=== PATIENT | male | born 1960 | race Caucasian/White ===

== ENCOUNTER 2018-01-13 21:41 | Inpatient (IN) ==
[2018-01-13] MEDS ORDERED: SODIUM CHLORIDE 0.9% 1,000 ML IV STA (21:59)
[2018-01-13 22:54] LABS: Basophils % 0.2 % (0.0-0.8); Hemoglobin 12.2 GM/DL (14.0-18.0); Immature Granulocytes % 1.1 %; Immature Granulocytes Absolute 0.09 #; Lymphocytes # 0.5 10*3/uL (1.4-4.0); Lymphocytes % 5.6 % (21.2-54.2); Mean Corpuscular HGB Conc 32.1 GM/DL (32-36); Mean Corpuscular Hemoglobin 24 PG (27-34); Mean Corpuscular Volume 74.4 FL (87-102); Mean Platelet Volume 9.5 FL (9.6-12.0); Monocytes # 0.7 10*3/uL (0.11-0.8); Monocytes % 8.3 % (1.7-12.7); Neutrophils # 6.8 10*3/uL (1.4-7.4); Neutrophils % 84.8 % (38.7-73.9); Platelet Count 111 T/CUMM (130-400); Red Blood Count 5.11 MC/CUMM (3.8-5.5); Red Cell Distribution Width 16.2 % (9.3-17.3); White Blood Count 8.1 T/CUMM (4-12)
[2018-01-13 23:22] LABS: Albumin 3.5 G/DL (3.4-5.0); Bilirubin,Total 1.2 MG/DL (0.2-1.0); Calcium 8.5 MG/DL (8.5-10.1); Osmolality,Calculated 275.7 MOS/KG (273-304); Potassium 3.8 MMOL/L (3.5-5.1); Total Protein 6.8 G/DL (6.4-8.3)
[2018-01-13 23:39] LABS: Apearance,Urine CLEAR (Clear); Bilirubin,Urine Negative (Negative); Blood, Urine Negative (Negative); Glucose,Urine (UA) >=500 mg/dL (Negative); Ketones,Urine 80 mg/dL (Negative); Nitrite,Urine Negative (Negative); Protein,Urine Negative; RBC,Urine 1 /HPF (0-4); Squamous Epithelial Cell,Urine Occasional /HPF (0-10); Urine Color Yellow (Yellow); Urine Specific Gravity 1.031 (1.001-1.035); Urine Urobilinogen < 2.0 EU/DL (0.2-1.0); WBC,Urine <1 /HPF (0-6)
[2018-01-14] MEDS ORDERED: cefTRIAXone 1,000 MG in SODIUM CHLORIDE 0.9% 100 ML IV STA (00:35)
[2018-01-14] MEDS ORDERED: cefTRIAXone 1,000 MG VIAL ONE (00:41)
[2018-01-14] MEDS ORDERED: ONDANSETRON 4 MG/2 ML VIAL IV PRN (01:03)
[2018-01-14] MEDS ORDERED: GLUCAGON 1 MG VIAL IM PRN (01:03)
[2018-01-14] MEDS ORDERED: DEXTROSE 50% 25 GM/50 ML VIAL IV PRN (01:03)
[2018-01-14] MEDS ORDERED: ACETAMINOPHEN 325 MG TABLET PO PRN (01:03)
[2018-01-14 06:28] LABS: Basophils % 0.5 % (0.0-0.8); Hemoglobin 11.4 GM/DL (14.0-18.0); Immature Granulocytes % 1.2 %; Immature Granulocytes Absolute 0.08 #; Lymphocytes # 0.8 10*3/uL (1.4-4.0); Lymphocytes % 12.2 % (21.2-54.2); Mean Corpuscular HGB Conc 31.7 GM/DL (32-36); Mean Corpuscular Hemoglobin 24 PG (27-34); Mean Corpuscular Volume 74.7 FL (87-102); Mean Platelet Volume 9.6 FL (9.6-12.0); Monocytes # 0.6 10*3/uL (0.11-0.8); Monocytes % 9.4 % (1.7-12.7); Neutrophils % 76.7 % (38.7-73.9); Platelet Count 101 T/CUMM (130-400); Red Blood Count 4.82 MC/CUMM (3.8-5.5); Red Cell Distribution Width 16.3 % (9.3-17.3); White Blood Count 6.5 T/CUMM (4-12)
[2018-01-14 06:53] LABS: Calcium 8.1 MG/DL (8.5-10.1); Osmolality,Calculated 273.8 MOS/KG (273-304); Potassium 3.5 MMOL/L (3.5-5.1)
[2018-01-14] MEDS: INSULIN REGULAR 100 UNIT/ML SUBCUT SCH ×4 (08:45→21:10)
[2018-01-14] MEDS ORDERED: OSTEO BIFLEX PO SCH (09:00)
[2018-01-14] MEDS ORDERED: VICTOZA 1.8 MG SUBCUT SCH (09:00)
[2018-01-14] MEDS ORDERED: NON-FORMULARY MEDICATION (Canagliflozin [Invokana] 300 MG) PO SCH (09:00)
[2018-01-14] MEDS ORDERED: Cranberry [Cranberry] 400 MG PO SCH (09:00)
[2018-01-14] MEDS ORDERED: risperiDONE 1 MG TABLET PO SCH (09:00)
[2018-01-14] MEDS ORDERED: PANTOPRAZOLE 40 MG TABLET PO SCH (09:00)
[2018-01-14] MEDS ORDERED: ENOXAPARIN 40 MG/0.4 ML SYRINGE SUBCUT SCH (09:00)
[2018-01-14] MEDS: metFORMIN 500 MG TABLET PO SCH ×2 (10:56→21:09)
[2018-01-14] MEDS: DILTIAZEM CD 240 MG CAPSULE PO SCH ×2 (10:56→21:09)
[2018-01-14] MEDS: buPROPion XL 150 MG TABLET PO SCH (10:56)
[2018-01-14] MEDS: CALCIUM (CARBONATE) 600 MG TABLET PO SCH (10:57)
[2018-01-14] MEDS: sitaGLIPtin 100 MG TABLET PO SCH (10:57)
[2018-01-14] MEDS: APIXABAN 5 MG TABLET PO SCH ×2 (10:57→21:10)
[2018-01-14] MEDS: DIGOXIN 0.125 MG TABLET PO SCH (10:57)
[2018-01-14] MEDS: PANTOPRAZOLE 40 MG TABLET PO SCH (10:57)
[2018-01-14] MEDS: METOPROLOL TARTRATE 100 MG TABLET PO SCH ×2 (10:58→21:09)
[2018-01-14] MEDS: OXYBUTYNIN XL 5 MG TABLET PO SCH (10:58)
[2018-01-14] MEDS: DOCUSATE SODIUM 100 MG CAPSULE PO SCH ×2 (10:59→21:08)
[2018-01-14] MEDS: DIVALPROEX 500 MG TABLET PO SCH ×2 (10:59→21:08)
[2018-01-14] MEDS: cefTRIAXone 1,000 MG VIAL IM SCH (11:00)
[2018-01-14] MEDS: MAGNESIUM CHLORIDE 64 MG TABLET PO SCH ×2 (11:53→21:08)
[2018-01-14] MEDS: COENZYME Q10 100 MG CAPSULE PO SCH (12:09)
[2018-01-14 13:38] LABS: ABG HCO3 26.1 MMOL/L (20-26); ABG Oxygen Saturation 90.8 % (95-100); ABG PH 7.469 (7.35-7.45); ABG PO2 59.1 MM HG (80-95); ABG TCO2 22.6 MMOL/L (23-27)
[2018-01-14] MEDS ORDERED: FUROSEMIDE 40 MG TABLET PO ONE (14:53)
[2018-01-14] MEDS: POTASSIUM CHLORIDE 20 MEQ TABLET PO SCH (16:06)
[2018-01-14] MEDS: cloNIDine 0.1 MG TABLET PO SCH (21:09)
[2018-01-14] MEDS: CARBIDOPA/LEVODOPA 25-100 MG TABLET PO SCH (21:10)
[2018-01-15 07:11] LABS: Albumin 3.1 G/DL (3.4-5.0); Bilirubin,Total 0.8 MG/DL (0.2-1.0); Calcium 8.5 MG/DL (8.5-10.1); Osmolality,Calculated 278.7 MOS/KG (273-304); Potassium 3.4 MMOL/L (3.5-5.1); Total Protein 6.7 G/DL (6.4-8.3)
[2018-01-15] MEDS: INSULIN REGULAR 100 UNIT/ML SUBCUT SCH ×4 (07:57→21:12)
[2018-01-15] MEDS ORDERED: POLYETHYLENE GLYCOL POWDER 17 GM PACK PO PRN (09:11)
[2018-01-15] MEDS: cefTRIAXone 1,000 MG VIAL IM SCH (10:42)
[2018-01-15] MEDS: buPROPion XL 150 MG TABLET PO SCH (10:43)
[2018-01-15] MEDS: COENZYME Q10 100 MG CAPSULE PO SCH (10:43)
[2018-01-15] MEDS: sitaGLIPtin 100 MG TABLET PO SCH (10:43)
[2018-01-15] MEDS: OXYBUTYNIN XL 5 MG TABLET PO SCH (10:44)
[2018-01-15] MEDS: CARBIDOPA/LEVODOPA 25-100 MG TABLET PO SCH ×3 (10:44→21:12)
[2018-01-15] MEDS: DIGOXIN 0.125 MG TABLET PO SCH (10:44)
[2018-01-15] MEDS: DIVALPROEX 500 MG TABLET PO SCH ×2 (10:46→21:10)
[2018-01-15] MEDS: DILTIAZEM CD 240 MG CAPSULE PO SCH ×2 (10:46→21:10)
[2018-01-15] MEDS: CALCIUM (CARBONATE) 600 MG TABLET PO SCH (10:46)
[2018-01-15] MEDS: POTASSIUM CHLORIDE 20 MEQ TABLET PO SCH ×2 (10:46→16:33)
[2018-01-15] MEDS: METOPROLOL TARTRATE 100 MG TABLET PO SCH ×2 (10:47→21:11)
[2018-01-15] MEDS: APIXABAN 5 MG TABLET PO SCH ×2 (10:47→21:12)
[2018-01-15] MEDS: PANTOPRAZOLE 40 MG TABLET PO SCH (10:47)
[2018-01-15] MEDS: metFORMIN 500 MG TABLET PO SCH ×2 (10:47→21:11)
[2018-01-15] MEDS: MAGNESIUM CHLORIDE 64 MG TABLET PO SCH ×2 (10:47→21:10)
[2018-01-15] MEDS: risperiDONE 0.5 MG TABLET PO SCH (10:54)
[2018-01-15] MEDS: DOCUSATE SODIUM 100 MG CAPSULE PO SCH ×2 (10:54→21:10)
[2018-01-15] MEDS ORDERED: SKIN HEALING OINT (AQUAPHOR) 50 GM TUBE TOP PRN (11:07)
[2018-01-15] MEDS: POLYCARBOPHIL 625 MG TABLET PO SCH ×2 (16:33→21:11)
[2018-01-15] MEDS: cloNIDine 0.1 MG TABLET PO SCH (21:11)
[2018-01-16] MEDS: INSULIN REGULAR 100 UNIT/ML SUBCUT SCH ×3 (09:40→15:55)
[2018-01-16] MEDS: metFORMIN 500 MG TABLET PO SCH (10:01)
[2018-01-16] MEDS: cefTRIAXone 1,000 MG VIAL IM SCH ×2 (10:01→10:30)
[2018-01-16] MEDS: sitaGLIPtin 100 MG TABLET PO SCH (10:01)
[2018-01-16] MEDS: OXYBUTYNIN XL 5 MG TABLET PO SCH (10:02)
[2018-01-16] MEDS: DIVALPROEX 500 MG TABLET PO SCH (10:02)
[2018-01-16] MEDS: DILTIAZEM CD 240 MG CAPSULE PO SCH (10:02)
[2018-01-16] MEDS: CALCIUM (CARBONATE) 600 MG TABLET PO SCH (10:02)
[2018-01-16] MEDS: DIGOXIN 0.125 MG TABLET PO SCH (10:02)
[2018-01-16] MEDS: METOPROLOL TARTRATE 100 MG TABLET PO SCH (10:02)
[2018-01-16] MEDS: CARBIDOPA/LEVODOPA 25-100 MG TABLET PO SCH ×2 (10:02→14:57)
[2018-01-16] MEDS: risperiDONE 0.5 MG TABLET PO SCH (10:03)
[2018-01-16] MEDS: PANTOPRAZOLE 40 MG TABLET PO SCH (10:03)
[2018-01-16] MEDS: APIXABAN 5 MG TABLET PO SCH (10:03)
[2018-01-16] MEDS: POLYCARBOPHIL 625 MG TABLET PO SCH ×2 (10:03→14:56)
[2018-01-16] MEDS: buPROPion XL 150 MG TABLET PO SCH (10:03)
[2018-01-16] MEDS: POTASSIUM CHLORIDE 20 MEQ TABLET PO SCH (10:04)
[2018-01-16] MEDS: COENZYME Q10 100 MG CAPSULE PO SCH (10:04)
[2018-01-16] MEDS: MAGNESIUM CHLORIDE 64 MG TABLET PO SCH (10:04)
[2018-01-16] MEDS: DOCUSATE SODIUM 100 MG CAPSULE PO SCH (10:05)
[2018-01-16] MEDS ORDERED: SULFAMETHOX/TRIMETHOPRIM 800-160 MG TABLET PO SCH (11:30)
[2018-01-16 16:10] VITALS: BP 101/82
== END 2018-01-16 16:02 | DRG 57 ==
LOC: EDUNIT# → EDBD → N.ED 21:41 → N.EDINP 01-14 01:03 → N.5E 01-14 02:25
PROVIDERS: ADMIT Internal Medicine; ATTEND Internal Medicine

== ENCOUNTER 2021-02-11 17:43 | Inpatient (IN) ==
[2021-02-11] MEDS ORDERED: SODIUM CHLORIDE 0.9% 1,000 ML IV STA ×2 (18:16→19:56)
[2021-02-11 18:57] LABS: Basophils % 0.3 % (0.0-0.8); Eosinophils % 0.1 % (0.00-10.9); Hematocrit 45.4 VOL% (42.0-52.0); Immature Granulocytes % 0.9 %; Lymphocytes # 0.3 10*3/uL (1.4-4.0); Lymphocytes % 2.9 % (21.2-54.2); Mean Corpuscular HGB Conc 30.8 GM/DL (32-36); Mean Corpuscular Volume 83.6 FL (87-102); Mean Platelet Volume 9.6 FL (9.6-12.0); Monocytes % 9.9 % (1.7-12.7); Neutrophils % 85.9 % (38.7-73.9); Platelet Count 129 T/CUMM (130-400); Red Blood Count 5.43 MC/CUMM (3.8-5.5); Red Cell Distribution Width 17.4 % (9.3-17.3); White Blood Count 10.7 T/CUMM (4-12)
[2021-02-11 19:37] LABS: Albumin 3.7 G/DL (3.4-5.0); Bilirubin,Total 0.7 MG/DL (0.2-1.0); Calcium 9.1 MG/DL (8.5-10.1); Potassium 4.5 MMOL/L (3.5-5.1); Total Protein 7.7 G/DL (6.4-8.2)
[2021-02-11] MEDS ORDERED: PIPERACILLIN/TAZOBACTAM 3,375 MG in SODIUM CHLORIDE 0.9% 100 ML IV STA (19:53)
[2021-02-11] MEDS ORDERED: VANCOMYCIN INJ 1,000 MG in SODIUM CHLORIDE 0.9% 250 ML IV STA (19:53)
[2021-02-11 20:13] LABS: Atypical Lymphocytes Few; Hypochromasia Slight; Microcytosis Slight; Platelet Estimate Normal; Polychromasia Slight
[2021-02-11] MEDS ORDERED: ONDANSETRON 4 MG/2 ML VIAL IV PRN (22:09)
[2021-02-12] MEDS: SODIUM CHLORIDE 0.9% 1,000 ML IV SCH ×3 (06:06→17:57)
[2021-02-12] MEDS ORDERED: DEXTROSE 50% 25 GM/50 ML VIAL IV PRN ×3 (06:39→11:01)
[2021-02-12] MEDS ORDERED: GLUCAGON 1 MG VIAL IM PRN ×2 (06:39→11:01)
[2021-02-12] MEDS ORDERED: VANCOMYCIN INJ 1,000 MG in SODIUM CHLORIDE 0.9% 250 ML IV SCH (07:00)
[2021-02-12 07:27] LABS: Basophils % 0.5 % (0.0-0.8); Eosinophils # 0.2 10*3/uL (0.0-0.87); Eosinophils % 2.6 % (0.00-10.9); Hematocrit 39.4 VOL% (42.0-52.0); Hemoglobin 12.6 GM/DL (14.0-18.0); Immature Granulocytes Absolute 0.06 #; Lymphocytes # 0.5 10*3/uL (1.4-4.0); Lymphocytes % 7.4 % (21.2-54.2); Mean Corpuscular Volume 80.4 FL (87-102); Mean Platelet Volume 9.1 FL (9.6-12.0); Monocytes % 10.6 % (1.7-12.7); Neutrophils % 77.9 % (38.7-73.9); Platelet Count 105 T/CUMM (130-400); Red Cell Distribution Width 16.9 % (9.3-17.3); White Blood Count 6.2 T/CUMM (4-12)
[2021-02-12 07:42] LABS: Albumin 3.2 G/DL (3.4-5.0); Calcium 8.4 MG/DL (8.5-10.1); Potassium 3.7 MMOL/L (3.5-5.1); Total Protein 6.3 G/DL (6.4-8.2)
[2021-02-12] MEDS: PIPERACILLIN/TAZOBACTAM 3,375 MG in SODIUM CHLORIDE 0.9% 100 ML IV SCH ×2 (08:06→17:57)
[2021-02-12 08:16] LABS: Hypochromasia 1+; Microcytosis 1+; Platelet Estimate Decreased
[2021-02-12] MEDS ORDERED: VANCOMYCIN INJ 1,250 MG in SODIUM CHLORIDE 0.9% 250 ML IV SCH (09:00)
[2021-02-12] MEDS: INSULIN REGULAR 100 UNIT/ML SUBCUT SCH ×4 (09:32→23:38)
[2021-02-12] MEDS: POLYCARBOPHIL 625 MG TABLET PO SCH (09:36)
[2021-02-12] MEDS: DIVALPROEX ER 500 MG TABLET PO SCH ×2 (09:37→21:14)
[2021-02-12] MEDS: ZIPRASIDONE 20 MG CAPSULE PO SCH ×2 (09:37→21:14)
[2021-02-12] MEDS: DILTIAZEM CD 240 MG CAPSULE PO SCH ×2 (09:38→21:14)
[2021-02-12] MEDS: DIGOXIN 0.125 MG TABLET PO SCH (09:38)
[2021-02-12] MEDS: METOPROLOL TARTRATE 100 MG TABLET PO SCH ×2 (09:38→21:15)
[2021-02-12] MEDS: MAGNESIUM CHLORIDE 64 MG TABLET PO SCH ×2 (09:38→21:15)
[2021-02-12] MEDS: APIXABAN 5 MG TABLET PO SCH ×2 (09:39→21:14)
[2021-02-12] MEDS: sitaGLIPtin 100 MG TABLET PO SCH (09:39)
[2021-02-12] MEDS: NON-FORMULARY MEDICATION (Liraglutide [Victoza 2-Pak] 0.6 MG/0.1 ML pen injector) SUBCUT SCH (15:11)
[2021-02-12] MEDS: CARBIDOPA/LEVODOPA 25-100 MG TABLET PO SCH ×3 (15:12→21:15)
[2021-02-12] MEDS: VANCOMYCIN INJ 2,250 MG in SODIUM CHLORIDE 0.9% 500 ML IV SCH (15:13)
[2021-02-12 15:58] LABS: Bilirubin,Urine Negative (Negative); Blood, Urine Small mg/dL (Negative); Glucose,Urine (UA) >=500 mg/dL (Negative); Ketones,Urine Negative (Negative); Nitrite,Urine Negative (Negative); Protein,Urine Negative; RBC,Urine 1 /HPF (0-4); Urine Appearance CLEAR (Clear); Urine Color Colorless (Yellow); Urine Specific Gravity 1.005 (1.001-1.035); Urine Urobilinogen < 2.0 EU/DL (0.2-1.0)
[2021-02-12] MEDS: POTASSIUM CHLORIDE 20 MEQ TABLET PO SCH (20:00)
[2021-02-12] MEDS: cloNIDine 0.1 MG TABLET PO SCH (21:14)
[2021-02-13] MEDS: PIPERACILLIN/TAZOBACTAM 3,375 MG in SODIUM CHLORIDE 0.9% 100 ML IV SCH ×3 (00:04→17:50)
[2021-02-13] MEDS: VANCOMYCIN INJ 2,250 MG in SODIUM CHLORIDE 0.9% 500 ML IV SCH ×2 (01:38→10:41)
[2021-02-13] MEDS: SODIUM CHLORIDE 0.9% 1,000 ML IV SCH ×2 (02:58→14:00)
[2021-02-13] MEDS ORDERED: DIGOXIN 0.125 MG TABLET PO ONE (07:10)
[2021-02-13] MEDS: DILTIAZEM CD 240 MG CAPSULE PO SCH ×2 (09:12→21:20)
[2021-02-13] MEDS: DIVALPROEX ER 500 MG TABLET PO SCH ×2 (09:12→21:20)
[2021-02-13] MEDS: POLYCARBOPHIL 625 MG TABLET PO SCH (09:13)
[2021-02-13] MEDS: APIXABAN 5 MG TABLET PO SCH ×2 (09:14→21:19)
[2021-02-13] MEDS: ZIPRASIDONE 20 MG CAPSULE PO SCH ×2 (09:14→21:18)
[2021-02-13] MEDS: MAGNESIUM CHLORIDE 64 MG TABLET PO SCH ×2 (09:15→21:18)
[2021-02-13] MEDS: sitaGLIPtin 100 MG TABLET PO SCH (09:17)
[2021-02-13] MEDS: METOPROLOL TARTRATE 100 MG TABLET PO SCH ×2 (09:17→21:18)
[2021-02-13] MEDS: CARBIDOPA/LEVODOPA 25-100 MG TABLET PO SCH ×3 (09:17→21:20)
[2021-02-13] MEDS: INSULIN REGULAR 100 UNIT/ML SUBCUT SCH ×4 (09:21→21:20)
[2021-02-13] MEDS: ACETAMINOPHEN 325 MG TABLET PO PRN ×2 (09:27→23:26)
[2021-02-13] MEDS: DIGOXIN 0.125 MG TABLET PO SCH (10:41)
[2021-02-13] MEDS: NON-FORMULARY MEDICATION (Liraglutide [Victoza 2-Pak] 0.6 MG/0.1 ML pen injector) SUBCUT SCH (15:43)
[2021-02-13] MEDS: cloNIDine 0.1 MG TABLET PO SCH (21:19)
[2021-02-13] MEDS: POTASSIUM CHLORIDE 20 MEQ TABLET PO SCH (21:19)
[2021-02-14] MEDS: ACETAMINOPHEN 325 MG TABLET PO PRN ×3 (05:13→22:52)
[2021-02-14] MEDS: PIPERACILLIN/TAZOBACTAM 3,375 MG in SODIUM CHLORIDE 0.9% 100 ML IV SCH ×3 (05:27→22:51)
[2021-02-14] MEDS: VANCOMYCIN INJ 2,250 MG in SODIUM CHLORIDE 0.9% 500 ML IV SCH ×2 (05:40→18:08)
[2021-02-14 05:41] LABS: Basophils % 0.5 % (0.0-0.8); Eosinophils # 0.1 10*3/uL (0.0-0.87); Eosinophils % 1.1 % (0.00-10.9); Hematocrit 37.1 VOL% (42.0-52.0); Immature Granulocytes % 0.9 %; Immature Granulocytes Absolute 0.07 #; Lymphocytes # 1.1 10*3/uL (1.4-4.0); Lymphocytes % 13.9 % (21.2-54.2); Mean Corpuscular HGB Conc 32.3 GM/DL (32-36); Mean Corpuscular Volume 79.4 FL (87-102); Mean Platelet Volume 9.4 FL (9.6-12.0); Monocytes % 12.7 % (1.7-12.7); Neutrophils % 70.9 % (38.7-73.9); Platelet Count 97 T/CUMM (130-400); Red Blood Count 4.67 MC/CUMM (3.8-5.5); White Blood Count 7.6 T/CUMM (4-12)
[2021-02-14] MEDS: SODIUM CHLORIDE 0.9% 1,000 ML IV SCH ×3 (05:48→09:36)
[2021-02-14 06:01] LABS: Albumin 2.8 G/DL (3.4-5.0); Bilirubin,Total 1.6 MG/DL (0.2-1.0); Calcium 8.3 MG/DL (8.5-10.1); Osmolality,Calculated 275.8 MOS/KG (273-304); Platelet Estimate Decreased; Potassium 3.6 MMOL/L (3.5-5.1); Total Protein 6.6 G/DL (6.4-8.2)
[2021-02-14] MEDS: INSULIN REGULAR 100 UNIT/ML SUBCUT SCH ×3 (08:39→17:03)
[2021-02-14] MEDS: POLYCARBOPHIL 625 MG TABLET PO SCH (08:40)
[2021-02-14] MEDS: APIXABAN 5 MG TABLET PO SCH ×2 (08:40→22:54)
[2021-02-14] MEDS: METOPROLOL TARTRATE 100 MG TABLET PO SCH ×2 (08:41→22:57)
[2021-02-14] MEDS: sitaGLIPtin 100 MG TABLET PO SCH (08:41)
[2021-02-14] MEDS: DIVALPROEX ER 500 MG TABLET PO SCH ×2 (08:41→22:55)
[2021-02-14] MEDS: ZIPRASIDONE 20 MG CAPSULE PO SCH ×2 (08:41→22:53)
[2021-02-14] MEDS: CARBIDOPA/LEVODOPA 25-100 MG TABLET PO SCH ×3 (08:41→22:54)
[2021-02-14] MEDS: DIGOXIN 0.125 MG TABLET PO SCH (08:42)
[2021-02-14] MEDS: DILTIAZEM CD 240 MG CAPSULE PO SCH ×2 (08:42→22:54)
[2021-02-14] MEDS: MAGNESIUM CHLORIDE 64 MG TABLET PO SCH ×2 (08:42→22:54)
[2021-02-14] MEDS: NON-FORMULARY MEDICATION (Liraglutide [Victoza 2-Pak] 0.6 MG/0.1 ML pen injector) SUBCUT SCH (08:43)
[2021-02-14] MEDS: SKIN HEALING OINT (AQUAPHOR) 50 GM TUBE TOP SCH (18:07)
[2021-02-14] MEDS: POTASSIUM CHLORIDE 20 MEQ TABLET PO SCH (18:08)
[2021-02-14] MEDS: cloNIDine 0.1 MG TABLET PO SCH (22:54)
[2021-02-14] MEDS: ZINC OXIDE PASTE 113 GM TUBE TOP SCH (22:55)
[2021-02-15] MEDS: INSULIN REGULAR 100 UNIT/ML SUBCUT SCH ×5 (00:04→22:59)
[2021-02-15] MEDS: VANCOMYCIN INJ 2,250 MG in SODIUM CHLORIDE 0.9% 500 ML IV SCH ×2 (05:43→19:05)
[2021-02-15] MEDS: ZINC OXIDE PASTE 113 GM TUBE TOP SCH ×2 (08:39→23:00)
[2021-02-15] MEDS: DILTIAZEM CD 240 MG CAPSULE PO SCH ×2 (08:40→22:56)
[2021-02-15] MEDS: APIXABAN 5 MG TABLET PO SCH ×2 (08:40→22:59)
[2021-02-15] MEDS: CARBIDOPA/LEVODOPA 25-100 MG TABLET PO SCH ×3 (08:40→22:58)
[2021-02-15] MEDS: POLYCARBOPHIL 625 MG TABLET PO SCH (08:40)
[2021-02-15] MEDS: METOPROLOL TARTRATE 100 MG TABLET PO SCH ×2 (08:40→22:58)
[2021-02-15] MEDS: MAGNESIUM CHLORIDE 64 MG TABLET PO SCH ×2 (08:40→22:58)
[2021-02-15] MEDS: ZIPRASIDONE 20 MG CAPSULE PO SCH ×2 (08:41→22:58)
[2021-02-15] MEDS: sitaGLIPtin 100 MG TABLET PO SCH (08:41)
[2021-02-15] MEDS: DIGOXIN 0.125 MG TABLET PO SCH (08:41)
[2021-02-15] MEDS: DIVALPROEX ER 500 MG TABLET PO SCH ×2 (08:41→22:58)
[2021-02-15] MEDS: SKIN HEALING OINT (AQUAPHOR) 50 GM TUBE TOP SCH (08:42)
[2021-02-15] MEDS: PIPERACILLIN/TAZOBACTAM 3,375 MG in SODIUM CHLORIDE 0.9% 100 ML IV SCH ×2 (08:45→17:14)
[2021-02-15] MEDS: NON-FORMULARY MEDICATION (Liraglutide [Victoza 2-Pak] 0.6 MG/0.1 ML pen injector) SUBCUT SCH (09:21)
[2021-02-15] MEDS: POTASSIUM CHLORIDE 20 MEQ TABLET PO SCH (18:15)
[2021-02-15] MEDS: ACETAMINOPHEN 325 MG TABLET PO PRN (19:56)
[2021-02-15] MEDS: VANCOMYCIN INJ 1,500 MG in SODIUM CHLORIDE 0.9% 500 ML IV SCH (21:10)
[2021-02-15] MEDS: cloNIDine 0.1 MG TABLET PO SCH (22:57)
[2021-02-16] MEDS: PIPERACILLIN/TAZOBACTAM 3,375 MG in SODIUM CHLORIDE 0.9% 100 ML IV SCH ×3 (01:15→16:44)
[2021-02-16] MEDS: VANCOMYCIN INJ 1,500 MG in SODIUM CHLORIDE 0.9% 500 ML IV SCH ×3 (05:39→21:35)
[2021-02-16 05:52] LABS: Basophils # 0.1 10*3/uL (0.0-0.2); Basophils % 1.4 % (0.0-0.8); Eosinophils # 0.3 10*3/uL (0.0-0.87); Eosinophils % 4.9 % (0.00-10.9); Hematocrit 42.4 VOL% (42.0-52.0); Hemoglobin 12.8 GM/DL (14.0-18.0); Immature Granulocytes % 5.2 %; Immature Granulocytes Absolute 0.27 #; Lymphocytes # 1.4 10*3/uL (1.4-4.0); Lymphocytes % 26.8 % (21.2-54.2); Mean Corpuscular HGB Conc 30.2 GM/DL (32-36); Mean Corpuscular Volume 84.1 FL (87-102); Mean Platelet Volume 9.1 FL (9.6-12.0); Monocytes % 11.5 % (1.7-12.7); NRBC # 0.04 10*3/uL; Neutrophils % 50.2 % (38.7-73.9); Platelet Count 114 T/CUMM (130-400); Red Blood Count 5.04 MC/CUMM (3.8-5.5); Red Cell Distribution Width 17.1 % (9.3-17.3); White Blood Count 5.2 T/CUMM (4-12)
[2021-02-16 06:05] LABS: Calcium 8.7 MG/DL (8.5-10.1); Osmolality,Calculated 285.3 MOS/KG (273-304); Potassium 3.4 MMOL/L (3.5-5.1)
[2021-02-16 06:29] LABS: Band Neutrophils 1 % (0-10); Eosinophils 5 % (0-10); Hypochromasia Slight; Lymphocytes 33 % (20-55); Microcytosis Slight; Nucleated Red Blood Cells 1 (0-5); Platelet Estimate Decreased; Segmented Neutrophils 51 % (50-85); Total Cells Counted 100
[2021-02-16 06:30] LABS: Atypical Lymphocytes Few
[2021-02-16] MEDS ORDERED: LACTULOSE 20 GM/30 ML UDCUP PO ONE (09:24)
[2021-02-16] MEDS: INSULIN REGULAR 100 UNIT/ML SUBCUT SCH ×4 (10:07→20:38)
[2021-02-16] MEDS: SKIN HEALING OINT (AQUAPHOR) 50 GM TUBE TOP SCH (10:08)
[2021-02-16] MEDS: DILTIAZEM CD 240 MG CAPSULE PO SCH ×2 (10:11→20:34)
[2021-02-16] MEDS: DIVALPROEX ER 500 MG TABLET PO SCH ×2 (10:12→20:38)
[2021-02-16] MEDS: APIXABAN 5 MG TABLET PO SCH ×2 (10:13→20:37)
[2021-02-16] MEDS: ZINC OXIDE PASTE 113 GM TUBE TOP SCH ×2 (10:13→20:38)
[2021-02-16] MEDS: POLYCARBOPHIL 625 MG TABLET PO SCH (10:13)
[2021-02-16] MEDS: ZIPRASIDONE 20 MG CAPSULE PO SCH ×2 (10:14→20:37)
[2021-02-16] MEDS: sitaGLIPtin 100 MG TABLET PO SCH (10:15)
[2021-02-16] MEDS: DIGOXIN 0.125 MG TABLET PO SCH (10:15)
[2021-02-16] MEDS: NON-FORMULARY MEDICATION (Liraglutide [Victoza 2-Pak] 0.6 MG/0.1 ML pen injector) SUBCUT SCH (10:16)
[2021-02-16] MEDS: CARBIDOPA/LEVODOPA 25-100 MG TABLET PO SCH ×3 (10:16→20:37)
[2021-02-16] MEDS: METOPROLOL TARTRATE 100 MG TABLET PO SCH ×2 (10:16→20:38)
[2021-02-16] MEDS: POLYETHYLENE GLYCOL POWDER 17 GM PACK PO SCH (10:17)
[2021-02-16] MEDS: MAGNESIUM CHLORIDE 64 MG TABLET PO SCH ×2 (10:17→20:38)
[2021-02-16] MEDS: LACTULOSE 20 GM/30 ML UDCUP PO SCH ×3 (12:50→23:23)
[2021-02-16] MEDS: POTASSIUM CHLORIDE 20 MEQ TABLET PO SCH (18:24)
[2021-02-16] MEDS: cloNIDine 0.1 MG TABLET PO SCH (20:38)
[2021-02-17] MEDS: PIPERACILLIN/TAZOBACTAM 3,375 MG in SODIUM CHLORIDE 0.9% 100 ML IV SCH ×2 (01:58→09:49)
[2021-02-17] MEDS: LACTULOSE 20 GM/30 ML UDCUP PO SCH ×4 (05:59→23:33)
[2021-02-17] MEDS: VANCOMYCIN INJ 1,500 MG in SODIUM CHLORIDE 0.9% 500 ML IV SCH ×3 (05:59→20:30)
[2021-02-17] MEDS: SKIN HEALING OINT (AQUAPHOR) 50 GM TUBE TOP SCH (09:41)
[2021-02-17] MEDS: INSULIN REGULAR 100 UNIT/ML SUBCUT SCH ×4 (09:41→20:29)
[2021-02-17] MEDS: DILTIAZEM CD 240 MG CAPSULE PO SCH ×2 (09:43→20:28)
[2021-02-17] MEDS: ZINC OXIDE PASTE 113 GM TUBE TOP SCH ×2 (09:45→20:29)
[2021-02-17] MEDS: POLYCARBOPHIL 625 MG TABLET PO SCH (09:45)
[2021-02-17] MEDS: DIVALPROEX ER 500 MG TABLET PO SCH ×2 (09:45→20:29)
[2021-02-17] MEDS: APIXABAN 5 MG TABLET PO SCH ×2 (09:45→20:28)
[2021-02-17] MEDS: ZIPRASIDONE 20 MG CAPSULE PO SCH ×2 (09:46→20:27)
[2021-02-17] MEDS: sitaGLIPtin 100 MG TABLET PO SCH (09:47)
[2021-02-17] MEDS: DIGOXIN 0.125 MG TABLET PO SCH (09:47)
[2021-02-17] MEDS: NON-FORMULARY MEDICATION (Liraglutide [Victoza 2-Pak] 0.6 MG/0.1 ML pen injector) SUBCUT SCH (09:47)
[2021-02-17] MEDS: MAGNESIUM CHLORIDE 64 MG TABLET PO SCH ×2 (09:48→20:29)
[2021-02-17] MEDS: METOPROLOL TARTRATE 100 MG TABLET PO SCH ×2 (09:48→20:29)
[2021-02-17] MEDS: CARBIDOPA/LEVODOPA 25-100 MG TABLET PO SCH ×3 (09:48→20:29)
[2021-02-17] MEDS: POLYETHYLENE GLYCOL POWDER 17 GM PACK PO SCH (09:48)
[2021-02-17 10:35] LABS: Bilirubin,Urine Negative (Negative); Blood, Urine Negative (Negative); Glucose,Urine (UA) >=500 mg/dL (Negative); Ketones,Urine 20 mg/dL (Negative); Nitrite,Urine Negative (Negative); Protein,Urine Negative; RBC,Urine 3 /HPF (0-4); Urine Appearance CLEAR (Clear); Urine Color Yellow (Yellow); Urine Specific Gravity 1.031 (1.001-1.035)
[2021-02-17] MEDS: POTASSIUM CHLORIDE 20 MEQ TABLET PO SCH (18:17)
[2021-02-17] MEDS: cloNIDine 0.1 MG TABLET PO SCH (20:29)
[2021-02-18] MEDS: VANCOMYCIN INJ 1,500 MG in SODIUM CHLORIDE 0.9% 500 ML IV SCH (04:07)
[2021-02-18] MEDS: LACTULOSE 20 GM/30 ML UDCUP PO SCH ×2 (05:42→11:46)
[2021-02-18 07:01] LABS: Basophils # 0.1 10*3/uL (0.0-0.2); Basophils % 1.5 % (0.0-0.8); Eosinophils # 0.3 10*3/uL (0.0-0.87); Eosinophils % 4.1 % (0.00-10.9); Hematocrit 42.1 VOL% (42.0-52.0); Immature Granulocytes % 4.5 %; Immature Granulocytes Absolute 0.28 #; Lymphocytes # 1.4 10*3/uL (1.4-4.0); Lymphocytes % 22.1 % (21.2-54.2); Mean Corpuscular HGB Conc 30.9 GM/DL (32-36); Mean Corpuscular Volume 82.1 FL (87-102); Mean Platelet Volume 8.7 FL (9.6-12.0); Monocytes % 11.7 % (1.7-12.7); Neutrophils % 56.1 % (38.7-73.9); Platelet Count 107 T/CUMM (130-400); Red Blood Count 5.13 MC/CUMM (3.8-5.5); Red Cell Distribution Width 16.9 % (9.3-17.3); White Blood Count 6.2 T/CUMM (4-12)
[2021-02-18] MEDS: INSULIN REGULAR 100 UNIT/ML SUBCUT SCH ×2 (07:45→11:42)
[2021-02-18] MEDS: DIVALPROEX ER 500 MG TABLET PO SCH (08:53)
[2021-02-18] MEDS: APIXABAN 5 MG TABLET PO SCH (08:53)
[2021-02-18] MEDS: CARBIDOPA/LEVODOPA 25-100 MG TABLET PO SCH (08:53)
[2021-02-18] MEDS: METOPROLOL TARTRATE 100 MG TABLET PO SCH (08:53)
[2021-02-18] MEDS: SKIN HEALING OINT (AQUAPHOR) 50 GM TUBE TOP SCH (08:54)
[2021-02-18] MEDS: DILTIAZEM CD 240 MG CAPSULE PO SCH (08:54)
[2021-02-18] MEDS: ZINC OXIDE PASTE 113 GM TUBE TOP SCH (08:54)
[2021-02-18] MEDS: MAGNESIUM CHLORIDE 64 MG TABLET PO SCH (08:54)
[2021-02-18] MEDS: sitaGLIPtin 100 MG TABLET PO SCH (08:54)
[2021-02-18] MEDS: DIGOXIN 0.125 MG TABLET PO SCH (08:54)
[2021-02-18] MEDS: POLYCARBOPHIL 625 MG TABLET PO SCH (08:55)
[2021-02-18] MEDS: ZIPRASIDONE 20 MG CAPSULE PO SCH (08:56)
[2021-02-18] MEDS: NON-FORMULARY MEDICATION (Liraglutide [Victoza 2-Pak] 0.6 MG/0.1 ML pen injector) SUBCUT SCH (09:29)
[2021-02-18] MEDS: POLYETHYLENE GLYCOL POWDER 17 GM PACK PO SCH (09:29)
[2021-02-18 09:36] LABS: Calcium 8.8 MG/DL (8.5-10.1); Osmolality,Calculated 280.4 MOS/KG (273-304); Potassium 3.9 MMOL/L (3.5-5.1)
[2021-02-18 11:53] VITALS: BP 137/87
== END 2021-02-18 12:25 | disposition home or self-care (01) | DRG 872 ==
LOC: EDBD → EDUNIT# → N.ED 17:43 → N.EDINP 20:11 → N.TELES 20:25
PROVIDERS: ADMIT Internal Medicine; ATTEND Internal Medicine